=== PATIENT | male | born 1995 | race Caucasian/White ===

== ENCOUNTER 2016-12-20 21:23 | Emergency (ER) | payer SELFPAY ==
--- NOTE | 2016-12-26 02:33 | ER ---
ADMIT: 12/20/2016 RM/LOC: ER [facility] MR#: [id number] [id number] ARIAS ADAMSN [place] [address] [place] [address] Emergency Room Report SEX: M AGE: 21 : 1995 DATE: 12/20/2016 HISTORY OF PRESENT ILLNESS: Patient is a 21-year-old male, who said he was upset today and punched the wall. 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 He has a history of asthma. He is right handed. He has right 5th metatarsal pain. PHYSICAL EXAMINATION: VITAL SIGNS: Blood pressure 133/74 with a heart rate of 72, respirations 20, temp is 97, O2 sats 98%. See diagram in T-sheet for site of pain. On physical examination, neurologically intact. No tendon injury. No vascular compromise. Splint applied, ulnar splint. Examined post application, area has good alignment. Splint placed by hi, mid-level provider. Procedure well tolerated. The patient was given [place] after the splinting. Looks awesome. Reviewed the x-ray and the patient was discharged. CLINICAL IMPRESSION: Right hand fracture, close boxer's fracture. PLAN: Go home, instructions given. JAMIE Harrison / Farzad Kee MD / modl JOB #: [id number] CC: Farzad Kee MD, Attending Physician Galdino Lawrence MD, Family Physician
== END 2016-12-20 23:00 | disposition home or self-care (01) ==
LOC: ER 21:23
PROC: 2W3EX1Z Immobilization of Right Hand using Splint (ICD-10-PCS; principal; 2016-12-20)
DX: S62.316A Displaced fracture of base of fifth metacarpal bone, right hand, initial encounter for closed fracture (principal); W22.01XA Walked into wall, initial encounter; Y92.009 Unspecified place in unspecified non-institutional (private) residence as the place of occurrence of the external cause